=== PATIENT | female | born 1970 | race Caucasian/White ===

== ENCOUNTER → 2017-02-27 | Outpatient (REF) | payer OTHER | LOC: M LAB REF 16:28 | PROVIDERS: ATTEND Nurse Practitioner Family | DX: R10.9 Unspecified abdominal pain (principal); M54.5 Low back pain ==

== ENCOUNTER → 2017-02-28 | Outpatient (REF) | payer OTHER ==
[2017-02-28 14:36] LABS: GAMMA GLUTAMYLTRANSPEPTIDASE 577 U/L (5-55)
== END ==
LOC: M LAB REF 13:12
PROVIDERS: ATTEND Nurse Practitioner Family
DX: R94.5 Abnormal results of liver function studies (principal); R10.9 Unspecified abdominal pain; M54.5 Low back pain

== ENCOUNTER → 2017-10-22 | Outpatient (REF) | payer OTHER ==
[2017-10-22 12:40] LABS: GAMMA GLUTAMYLTRANSPEPTIDASE 144 U/L (5-55)
== END ==
LOC: M LAB REF 12:07
DX: R94.5 Abnormal results of liver function studies (principal)

== ENCOUNTER → 2018-05-21 | Outpatient (REF) | payer OTHER ==
[2018-05-21 13:46] LABS: GAMMA GLUTAMYLTRANSPEPTIDASE 118 U/L (5-55)
== END ==
LOC: M LAB REF 12:59
DX: R94.5 Abnormal results of liver function studies (principal)

== ENCOUNTER 2020-10-24 11:02 | Observation (INO) | payer OTHER ==
[~2020-10-24] VITALS: Ht 152.4 cm; Wt 77.5 kg
[2020-10-24] MEDS ORDERED: VITA50005 PO (11:21)
[2020-10-24] MEDS ORDERED: METF500T13 PO (11:21)
[2020-10-24] MEDS ORDERED: ATOR1TAB19 PO (11:21)
[2020-10-24] MEDS ORDERED: PARO20TA3 PO (11:21)
[2020-10-24] MEDS ORDERED: SULF500T41 PO (11:21)
[2020-10-24] MEDS ORDERED: TOUJ1.2I (11:21)
[2020-10-24] MEDS ORDERED: GLIM2TAB29 PO (11:21)
[2020-10-24] MEDS ORDERED: CLAR10CA3 PO (11:21)
[2020-10-24] MEDS ORDERED: NS 1,000 ML IV ONE (11:40)
--- NOTE | 2020-10-24 12:00 | REP ---
INDICATION: Abdominal Pain COMPARISON: None. TECHNIQUE: Upright view of the chest with supine and upright views of the abdomen and pelvis. FINDINGS: Frontal upright view of the chest demonstrates no acute cardiopulmonary process or free air below the diaphragm to suspect pneumoperitoneum. Supine and upright views of the abdomen and pelvis demonstrate nonspecific bowel gas pattern without obstruction or perforation. No organomegaly. No abnormal calcifications. Skeletal structures normal for age. IMPRESSION: Nonspecific bowel gas pattern. <Electronically signed by Porter Osei > 10/24/20 [id number]
[2020-10-24 12:33] LABS: BASO # 0.1 10^3/uL (0.0-0.2); BASO % 0.2 % (0.0-1.0); EOS # 0.2 10^3/uL (0.0-0.5); EOS % 0.9 % (0.0-3.0); HEMOGLOBIN 13.9 g/dl (12.0-15.5); LYMPH # 2.2 10^3/uL (1.5-5.0); LYMPH % 10.4 % (24.0-44.0); MEAN CORPUSCULAR HEMOGLOBIN 30.6 pg (27.0-33.0); MEAN CORPUSCULAR HGB CONC 32.3 g/dl (32.0-36.5); MEAN CORPUSCULAR VOLUME 94.7 fl (80.0-96.0); MONO # 1.4 10^3/uL (0.0-0.8); MONO % 6.9 % (2.0-8.0); NEUTROPHILS # 16.8 10^3/uL (1.5-8.5); PLATELET COUNT, AUTOMATED 265 10^3/uL (150-450); RED BLOOD COUNT 4.54 10^6/uL (4.00-5.40); WHITE BLOOD COUNT 20.8 10^3/uL (4.0-10.0)
--- NOTE | 2020-10-24 12:33 | REP ---
INDICATION: RUQ TTP, h/o gallstones. COMPARISON: Ultrasound 03/01/[address] 03/06/2017. TECHNIQUE: Real-time sonographic evaluation of right upper quadrant performed. FINDINGS: Multiple gallstones in the gallbladder, the largest measures 1.1 cm. There is mild gallbladder wall thickening to 5 mm. Trace fluid is seen adjacent to the gallbladder.. There is no intrahepatic or extrahepatic biliary dilatation, common bile duct measures 4 mm in maximum diameter. The liver demonstrates 2 solid-appearing masses, 1 in the left lobe measuring 3 cm in diameter and 1 in the right lobe measuring 4.4 cm in diameter. These have been visualized on prior studies and are grossly unchanged. In fact there were 4 mass is seen on the CT performed 03/06/2017. The visualized pancreas is grossly unremarkable, not optimally visualized due to overlying bowel gas. The right kidney demonstrates no hydronephrosis, with a normal size of 11.7 cm in length. IMPRESSION: Multiple gallstones in the gallbladder measuring up to 1.1 cm in diameter. Mild gallbladder wall thickening up to 5 mm. Trace fluid adjacent to the gallbladder. No biliary dilatation. Two solid masses are seen in the liver as discussed above which appear unchanged compared to prior CT 03/06/2017. <Electronically signed by Darius Bundy > 10/24/20 [id number]
[2020-10-24] MEDS ORDERED: PIPERACILLIN/TAZOBACTAM SOD 3.375 GM in D5W MINI-BAG PLUS 50 ML IV ONE (12:45)
[2020-10-24 13:07] LABS: ALBUMIN 3.7 GM/DL (3.2-5.2); BILIRUBIN,DIRECT 0.3 MG/DL (0.0-0.2); BILIRUBIN,TOTAL 0.8 MG/DL (0.2-1.0); TOTAL PROTEIN 7.5 GM/DL (6.4-8.2)
[2020-10-24] MEDS ORDERED: LOSA50TA88 PO (13:09)
[2020-10-24] MEDS ORDERED: ISOVUE-370 76% 100ML VIAL As Ordered ONE (13:11)
[2020-10-24 13:19] LABS: CK-MB VALUE MASS < 1.0 NG/ML (<3.6); CPK CREATINE PHOSPHOKINASE 137 U/L (26-192); MB/CK RELATIVE INDEX 0.73 (< OR =4); TROPONIN I < 0.02 NG/ML (< 0.10)
--- NOTE | 2020-10-24 13:35 | REP ---
INDICATION: RUQ and RLQ TTP. COMPARISON: None TECHNIQUE: Axial contrast-enhanced images from the lung bases to the pubic symphysis using 100 cc Isovue 370 intravenous contrast material. Coronal and sagittal reformations obtained. This CT examination was performed using the following dose reduction techniques: Automated exposure control, adjustment of mA and/or kv according to the patient's size, and the use of iterative reconstruction technique. FINDINGS: Distended gallbladder demonstrates gallstones, wall thickening, and pericholecystic fluid consistent with acute cholecystitis. Liver demonstrates hyperenhancing areas consistent with findings on prior examination and likely chronic/benign. Spleen, pancreas, bilateral adrenal glands and kidneys are normal. The enteric system is without obstruction or acute inflammatory process. Normal terminal ileum and appendix are identified in the right lower quadrant. Scattered diverticula noted without acute diverticulitis. Pelvis demonstrates collapsed bladder and age-appropriate uterus/adnexa. No ascites. No free air. No retroperitoneal adenopathy. Abdominal aorta without aneurysm or dissection. Musculoskeletal structures are intact. Lung bases demonstrate trace right basilar atelectasis. IMPRESSION: Findings compatible with acute cholecystitis. <Electronically signed by Porter Osei > 10/24/20 [id number]
[2020-10-24] MEDS ORDERED: NORCO, ANEXSIA 5/325MG TABLET (HYDROcodone/ACETAMINOPHEN) PO PRN ×2 (13:55)
[2020-10-24] MEDS: PIPERACILLIN/TAZOBACTAM SOD 3.375 GM in D5W MINI-BAG PLUS 50 ML IV SCH ×2 (14:00→20:58)
[2020-10-24 14:57] LABS: RSV AMPLIFICATION NEGATIVE (NEGATIVE)
--- NOTE | 2020-10-24 16:04 | ECGEPIP ---
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
[2020-10-24 16:20] VITALS: BP 107/62
[2020-10-24] MEDS: PANTOPRAZOLE 40MG VIAL (C9113 PER 1) IV SCH (16:43)
[2020-10-24] MEDS: KETOROLAC 30 MG/ML 1ML VIAL IV SCH ×2 (16:44→21:00)
[2020-10-24] MEDS: NS 1,000 ML IV SCH (16:45)
[2020-10-24] MEDS ORDERED: GLUCAGON INJ 1MG VIAL SC PRN (16:55)
[2020-10-24] MEDS ORDERED: DEXTROSE 50% 50 ML SYRINGE IV PRN (16:55)
[2020-10-24] MEDS ORDERED: GLUCOSE 4GM CHEW TABLET PO PRN (16:55)
[2020-10-24] MEDS: HumaLOG INSULIN (NovoLOG) PER UNIT SC SCH (18:00)
[2020-10-24 20:59] VITALS: BP 127/61
[2020-10-24] MEDS ORDERED: LOSARTAN 50MG TABLET PO SCH (21:00)
[2020-10-24] MEDS ORDERED: LORATADINE 10 MG TAB PO SCH (21:00)
[2020-10-24] MEDS ORDERED: ATORVASTATIN 10 MG TAB PO SCH (21:00)
--- NOTE | 2020-10-24 21:01 | HPE ---
HISTORY AND PHYSICAL DATE OF ADMISSION: 10/24/2020 Patient is a 49-year-old female who has had pain for over 2 1/2 days now, initially started with some periumbilical pain radiating up into the epigastric area and more so into the right upper quadrant, was seen in the emergency room after having this persistent pain that was not getting better. She did not have any fevers or chills. She has not had any acholic stools, no bilirubinuria, no blood per rectum, no previous episodes similar to this. Her evaluation in the emergency room revealed evidence of cholecystitis with an elevated white count. PAST MEDICAL HISTORY: The patient has a previous section, history of left leg incision and drainage, history of hypercholesterolemia, hypertension, coronary artery disease, history of diabetes mellitus, history of depression. MEDICATIONS: Include: - atorvastatin - insulin - vitamin D - paroxetine - glimepiride - metformin - loratadine - sulfasalazine - losartan PHYSICAL EXAMINATION: Reveals a 49-year-old female, looks stated age. HEENT: Unremarkable. Neck: Supple without adenopathy. Lungs: Clear to auscultation without crackles, wheeze, or rhonchi. Heart: Regular without murmur. Abdomen: Soft, nontender, nondistended except in the right upper quadrant where she has some guarding with some mild rebound. Extremities: Warm and well-perfused. No hernias or masses are appreciated. No evident lesions are appreciated. Her white count is elevated. No significant elevation of liver function tests. No evidence of gallstone pancreatitis. Has had a gallbladder ultrasound showing gallstones. IMPRESSION/PLAN: The patient has evidence of cholecystitis and right upper quadrant pain, tenderness, elevated white count. At this time, we will plan on proceeding with IV fluids, IV antibiotics, keep her nothing by mouth, and get some followup labs in the morning, will get her on insulin sliding scale, restart her medications in the morning. Depending on her progress, she may need operative intervention while she is here, otherwise if she has significant improvement of her abdominal pain and discomfort we may mobilize her as an outpatient and plan for a laparoscopic cholecystectomy as an outpatient. She understands our current plan at this time. She states that she is feeling better now than she was when she was first seen in the emergency room and feels better than she did when she initially started having the pain and discomfort, thus will continue with current plans at this time.
[2020-10-24 22:00] VITALS: BP 127/61
[2020-10-25 02:00] VITALS: BP 126/60
[2020-10-25] MEDS: PIPERACILLIN/TAZOBACTAM SOD 3.375 GM in D5W MINI-BAG PLUS 50 ML IV SCH ×3 (02:39→12:55)
[2020-10-25] MEDS: NS 1,000 ML IV SCH ×3 (02:39→12:56)
[2020-10-25] MEDS: KETOROLAC 30 MG/ML 1ML VIAL IV SCH ×2 (02:39→08:24)
[2020-10-25 05:53] LABS: HEMOGLOBIN 12.4 g/dl (12.0-15.5); MEAN CORPUSCULAR HGB CONC 32.6 g/dl (32.0-36.5); PLATELET COUNT, AUTOMATED 207 10^3/uL (150-450); WHITE BLOOD COUNT 13.1 10^3/uL (4.0-10.0)
[2020-10-25 06:00] VITALS: BP 130/63
[2020-10-25] MEDS: HumaLOG INSULIN (NovoLOG) PER UNIT SC SCH ×3 (06:00→12:56)
[2020-10-25 06:26] LABS: ALBUMIN 2.7 GM/DL (3.2-5.2); ALT/SGPT 23 U/L (12-78); BLOOD UREA NITROGEN 15 MG/DL (7-18); CALCIUM LEVEL 8.3 MG/DL (8.5-10.1); CARBON DIOXIDE LEVEL 26 MEQ/L (21-32); CHLORIDE LEVEL 109 MEQ/L (98-107); CREATININE FOR GFR 0.69 MG/DL (0.55-1.30); GLOMERULAR FILTRATION RATE > 60.0 (>51); GLUCOSE, FASTING 106 MG/DL (70-100); LIPASE 119 U/L (73-393); POTASSIUM SERUM 3.5 MEQ/L (3.5-5.1); SODIUM LEVEL 141 MEQ/L (136-145); TOTAL PROTEIN 6.1 GM/DL (6.4-8.2)
[2020-10-25] MEDS: PANTOPRAZOLE 40MG VIAL (C9113 PER 1) IV SCH (08:22)
[2020-10-25] MEDS ORDERED: PARoxetine 20MG TABLET PO SCH (09:00)
[2020-10-25 10:00] VITALS: BP 132/67
--- NOTE | 2020-10-25 11:25 | IPNPDOC ---
Text Note Date of Service The patient was seen on 10/25/20. NOTE Gen. surgery. Dr. Cole The patient is a 49-year-old female admitted 10/24/20 with cholecystitis. The patient was admitted with IV fluids, IV antibiotics and NPO. This morning, the patient states her abdominal discomfort is much improved. She states there is still some mild tenderness/soreness but it is much improved compared with yesterday. No nausea or vomiting. Denies abdominal distention, diarrhea. The patient last used a dose of Toradol at 2:30 AM. She has not used any [place] during admission. Afebrile, 98.5 this morning. 100.2 last evening at 1800 General. Awake and alert, resting comfortably in bed, no acute distress. Lungs clear to auscultation Heart S1, S2 regular rate and rhythm. Abdomen. Soft, nondistended, mild tenderness with palpation in the right upper quadrant, no grimacing on exam, no rebound. Extremities are warm and well-perfused, no edema. 1965/400, +1565 WBC 13.1, this is decreased from 20.8 on admission. AST 16, ALT 23, alkaline phosphatase 93, lipase 119 Blood culture 2 pending. Assessment/plan Acute cholecystitis. The patient reports her discomfort is significantly improved compared with admission yesterday. The patient reports no nausea or vomiting. Will try clear liquids and see if the patient is able to tolerate this. IVF NS 125 IV Zosyn. IV Protonix. Monitor. DM Blood sugar 91-135. Hypertension. Continue Cozaar. BP 130/63 this morning Dyslipidemia. Continue statin. VS,Fishbone, I+O VS, Fishbone, I+O Laboratory Tests 10/24/20 11:45 10/25/20 05:33 Vital Signs Date Time Temp Pulse Resp B/P (MAP) Pulse Ox O2 Delivery O2 Flow Rate FiO2 10/25/20 10:00 97.4 67 18 132/67 (88) 98 Room Air I&O- Last 24 Hours up to 6 AM 10/25/20 06:00 Intake Total 2640 ml Output Total 400 ml Balance 2240 ml Mattie Barclay Oct 25, 2020 11:25
[2020-10-25] MEDS ORDERED: AMOX500T2 PO (13:22)
[2020-10-25 14:00] VITALS: BP 137/74
== END 2020-10-25 14:34 | disposition home or self-care (01) ==
LOC: M ED 11:02 → M ED INP 13:51 → ENRESERV 14:30 → M MSPAV 16:23
PROVIDERS: ADMIT Surgery; ATTEND Surgery
DX: K81.0 Acute cholecystitis (principal); E11.9 Type 2 diabetes mellitus without complications; I10 Essential (primary) hypertension; E78.49 Other hyperlipidemia; F32.9 Major depressive disorder, single episode, unspecified; Z79.4 Long term (current) use of insulin; Z79.84 Long term (current) use of oral hypoglycemic drugs; Z79.899 Other long term (current) drug therapy
CPT/HCPCS: 36415; 74021; 74177; 76705; 80047; 80053; 80076; 81001; 82550; 82553; 83605; 83690; 84484; 85025; 85027; 87040; 87631; 93005; 93041; 96361; 96365; 96366; 96375; 96376; 99285; C9113; J1885; J2543; Q9967

== ENCOUNTER → 2020-12-01 | Outpatient (CLI) | payer OTHER ==
[~2020-12-01] MED LIST: AMOX500T2 PO; ATOR1TAB19 PO; CLAR10CA3 PO; GLIM2TAB29 PO; LOSA50TA88 PO; METF500T13 PO; PARO20TA3 PO; SULF500T41 PO; TOUJ1.2I; VITA50005 PO
== END ==
LOC: M LABSMTC 10:25
PROVIDERS: ATTEND Anesthesiology
DX: Z11.52 Encounter for screening for COVID-19 (principal)

== ENCOUNTER 2020-12-06 07:27 | Day surgery (SDC) | payer OTHER ==
[~2020-12-06] VITALS: Ht 152.4 cm; Wt 73.8 kg
[~2020-12-06 07:27] MED LIST changes: +LR 1,000 ML IV ONE; +ceFAZolin SOD 2 GM in IV 1 EA IV ONE
[2020-12-06] MEDS ORDERED: BUPIVACAINE/EPIN 0.25% 30 ML VIAL As Ordered ONE (08:48)
[2020-12-06] MEDS ORDERED: dexameTHASONE 4 MG/ML 1ML VIAL (J1100 PER 1MG) As Ordered ONE (09:26)
[2020-12-06] MEDS ORDERED: MIDAZOLAM INJ 2MG/2ML VIAL (J2250 PER 1MG) As Ordered ONE (09:26)
[2020-12-06] MEDS ORDERED: SUGAMMADEX SODIUM 500 MG/5 ML VIAL (BRIDION) As Ordered ONE (09:26)
[2020-12-06] MEDS ORDERED: ONDANSETRON 4MG/2ML VIAL As Ordered ONE (09:26)
[2020-12-06] MEDS ORDERED: ROCURONIUM BROMIDE 50 MG/5 ML VIAL As Ordered ONE (09:26)
[2020-12-06] MEDS ORDERED: propofoL 200 MG/20 ML VIAL As Ordered ONE (09:26)
[2020-12-06] MEDS ORDERED: LIDOCAINE 2% 100MG/5ML SDV (FOR ANES.) As Ordered ONE (09:26)
[2020-12-06] MEDS ORDERED: fentaNYL 100 MCG/2 ML INJECTION (J3010) As Ordered ONE (09:26)
[2020-12-06] MEDS ORDERED: KETOROLAC 60MG 2ML VIAL As Ordered ONE (09:26)
[2020-12-06] MEDS ORDERED: HYDROmorphone HCL 2 MG/ML 1ML VIAL (J1170) As Ordered ONE (09:27)
[2020-12-06] MEDS ORDERED: PHENYLephrine 500MCG 5ML (100MCG/ML) SYRINGE As Ordered ONE (09:34)
[2020-12-06] MEDS ORDERED: MEPERIDINE INJ 25 MG/ML VIAL (J2175) As Ordered ONE (10:18)
[2020-12-06] MEDS ORDERED: oxyCODONE 5MG TAB PO PRN (10:20)
[2020-12-06] MEDS ORDERED: LR 1,000 ML IV SCH (10:20)
[2020-12-06] MEDS ORDERED: NS 1,000 ML IV SCH (10:20)
[2020-12-06] MEDS ORDERED: ONDANSETRON 4MG/2ML VIAL IV PRN (10:20)
[2020-12-06] MEDS ORDERED: traMADol 50 MG TAB PO PRN (10:20)
[2020-12-06] MEDS ORDERED: MEPERIDINE INJ 25 MG/ML VIAL (J2175) IV PRN (10:20)
[2020-12-06] MEDS ORDERED: fentaNYL 100 MCG/2 ML INJECTION (J3010) IV PRN (10:20)
--- NOTE | 2020-12-06 10:45 | RO ---
OPERATIVE NOTE DATE OF OPERATION: 12/06/2020 PREOPERATIVE DIAGNOSIS: Acute cholecystitis. POSTOPERATIVE DIAGNOSIS: Acute cholecystitis. PROCEDURE: Laparoscopic cholecystectomy. SURGEON: Sourav Cole Jr, MD PROPAGATOR LABORER: ANESTHESIA: General endotracheal anesthesia EBL: Minimal. FLUIDS: Crystalloid. DISPOSITION: The patient was taken to recovery room awake, alert, hemodynamically stable. DESCRIPTION OF PROCEDURE: The patient was taken to the operating room and was given general anesthesia. After adequate anesthesia and preoperative antibiotics were given, the patient was prepped and draped in the usual sterile fashion. Next, a supraumbilical incision was made with a skin knife. Blunt dissection was carried down to fascia. The fascia was entered with Veress needle and insufflated to 15 mm of pressure. Dilating 10 mm trocar was placed and under direct visualization an epigastric and two lateral trocars were placed. Some adhesions of the gallbladder to the omentum were taken down with Hook cautery and the gallbladder was retracted superiorly and neck of the gallbladder was cleared of peritoneum using Hook cautery. Circumferentially I was able to see the neck of the gallbladder quite nicely, cystic artery was going into the gallbladder itself and critical view of safety was obtained. The cystic artery was clipped proximally and distally and transected. The cystic duct was dissected further and had tapered nicely and this was clipped proximally and distally and transected. The gallbladder was removed from the gallbladder bed, placed in an Endo Catch bag, brought out through the umbilicus. The right upper quadrant was copiously irrigated until clear. All trocars were removed under direct visualization. #0 Vicryl was used to close the fascia at the umbilicus. All incisions were closed with 4-0 Vicryl. Steri-Strips and a dry sterile dressing were applied. The patient was awakened, extubated and brought to the recovery room awake, alert and hemodynamically stable. Sponge and needle counts were correct x2.
[2020-12-06 12:02] VITALS: BP 132/65
== END 2020-12-06 12:05 | disposition home or self-care (01) ==
LOC: M SDC 07:27
PROVIDERS: ATTEND Surgery
DX: K80.12 Calculus of gallbladder with acute and chronic cholecystitis without obstruction (principal); I11.9 Hypertensive heart disease without heart failure; E11.65 Type 2 diabetes mellitus with hyperglycemia; F32.9 Major depressive disorder, single episode, unspecified; I25.10 Atherosclerotic heart disease of native coronary artery without angina pectoris; M79.9 Soft tissue disorder, unspecified; F41.9 Anxiety disorder, unspecified; F34.1 Dysthymic disorder; Z88.1 Allergy status to other antibiotic agents; J30.1 Allergic rhinitis due to pollen; M89.9 Disorder of bone, unspecified; Z79.899 Other long term (current) drug therapy; Z79.4 Long term (current) use of insulin; Z79.2 Long term (current) use of antibiotics
CPT/HCPCS: 47562; 88304; J0690; J1100; J1170; J1885; J2175; J2250; J2370; J2405; J3010; S2900

== ENCOUNTER → 2021-03-13 | Outpatient (REF) | payer OTHER ==
[~2021-03-13] MED LIST changes: +ERGO500029 PO; -LR 1,000 ML IV ONE; -VITA50005 PO; -ceFAZolin SOD 2 GM in IV 1 EA IV ONE
== END ==
LOC: M SFHCCAPE 13:43
PROVIDERS: ATTEND Physician Assistant
DX: R35.0 Frequency of micturition (principal)

== ENCOUNTER → 2022-06-12 | Outpatient (CLI) | payer OTHER ==
[~2022-06-12] MED LIST changes: +LOSA50TA28 PO; -LOSA50TA88 PO
[2022-06-12 11:17] LABS: HEMOGLOBIN A1c 7.1 %
== END ==
LOC: M PLALAB 07:55
PROVIDERS: ATTEND Internal Medicine Endocrinology, Diabetes & Metabolism
DX: E11.65 Type 2 diabetes mellitus with hyperglycemia (principal); I10 Essential (primary) hypertension

== ENCOUNTER → 2022-12-11 | Outpatient (CLI) | payer OTHER ==
[2022-12-11 11:56] LABS: HEMOGLOBIN A1c 7.1 % (4.0-6.0)
== END ==
LOC: M PLALAB 07:51
PROVIDERS: ATTEND Internal Medicine Endocrinology, Diabetes & Metabolism
DX: E11.65 Type 2 diabetes mellitus with hyperglycemia (principal)

== ENCOUNTER → 2023-05-09 | Outpatient (CLI) | payer OTHER ==
[2023-05-09 11:25] LABS: ALBUMIN 4.1 G/DL (3.2-5.2); ALKALINE PHOSPHATASE 109 U/L (46-116); ALT/SGPT 27 U/L (7.0-40); AST/SGOT 17 U/L (<34); BILIRUBIN,TOTAL 0.5 MG/DL (0.3-1.2); BLOOD UREA NITROGEN 18 MG/DL (9-23); CALCIUM LEVEL 9.6 MG/DL (8.5-10.1); CARBON DIOXIDE LEVEL 30 MMOL/L (20-31); CHLORIDE LEVEL 105 MMOL/L (98-107); CHOLESTEROL LEVEL 113 MG/DL (<200); CHOLESTEROL RISK RATIO 3.27 (<5); CREATININE FOR GFR 0.66 MG/DL (0.55-1.30); GLOMERULAR FILTRATION RATE > 60.0 (>51); GLUCOSE, FASTING 145 MG/DL (60-100); HDL CHOLESTEROL 34.5 MG/DL (>40); LDL CHOLESTEROL 62.5 MG/DL (<100); NON-HDL-C 78.5 MG/DL; POTASSIUM SERUM 4.4 MMOL/L (3.5-5.1); SODIUM LEVEL 141 MMOL/L (136-145); TOTAL PROTEIN 7.4 G/DL (5.7-8.2); TRIGLYCERIDES LEVEL 80 MG/DL (<150)
[2023-05-09 12:03] LABS: HEMOGLOBIN A1c 6.7 % (4.0-6.0)
== END ==
LOC: M PLALAB 07:59
PROVIDERS: ATTEND Internal Medicine Endocrinology, Diabetes & Metabolism
DX: E78.00 Pure hypercholesterolemia, unspecified (principal); E11.9 Type 2 diabetes mellitus without complications; I10 Essential (primary) hypertension

== ENCOUNTER → 2023-10-31 | Outpatient (REF) | payer OTHER | LOC: M LAB REF 12:22 | PROVIDERS: ATTEND Family Medicine | DX: M89.9 Disorder of bone, unspecified (principal); Z79.84 Long term (current) use of oral hypoglycemic drugs ==

== ENCOUNTER → 2023-12-19 | Outpatient (CLI) | payer OTHER ==
[2023-12-19 13:11] LABS: CREATININE, URINE 66.9 MG/DL
[2023-12-19 13:12] LABS: MAU/CREAT RATIO 8.9 MCG/MG (0.0-30.0)
[2023-12-19 13:15] LABS: HEMOGLOBIN A1c 7.5 % (4.0-6.0)
== END ==
LOC: M PLALAB 09:15
PROVIDERS: ATTEND Internal Medicine Endocrinology, Diabetes & Metabolism
DX: E11.65 Type 2 diabetes mellitus with hyperglycemia (principal)

== ENCOUNTER → 2024-06-24 | Outpatient (CLI) | payer OTHER ==
[2024-06-24 14:33] LABS: HEMOGLOBIN A1c 6.7 % (4.0-6.0)
== END ==
LOC: M PLALAB 11:33
PROVIDERS: ATTEND Internal Medicine Endocrinology, Diabetes & Metabolism
DX: E11.65 Type 2 diabetes mellitus with hyperglycemia (principal); E78.00 Pure hypercholesterolemia, unspecified; I10 Essential (primary) hypertension

== ENCOUNTER → 2024-10-09 | Outpatient (CLI) | payer OTHER ==
[2024-10-09 14:02] LABS: C REACTIVE PROTEIN QUANTITATIV < 0.50 MG/DL (<1.0)
[2024-10-09 14:03] LABS: ALT/SGPT 32 U/L (7.0-40); AST/SGOT 21 U/L (<34); CREATININE FOR GFR 0.59 MG/DL (0.55-1.30); GLOMERULAR FILTRATION RATE > 60.0 (>51)
[2024-10-09 14:08] LABS: BASO # 0.1 10^3/uL (0.0-0.2); BASO % 0.8 % (0.0-1.0); EOS # 0.2 10^3/uL (0.0-0.5); HEMATOCRIT 44.1 % (36.0-47.0); HEMOGLOBIN 14.1 g/dl (12.0-15.5); LYMPH # 2.8 10^3/uL (1.5-5.0); LYMPH % 31.8 % (24.0-44.0); MEAN CORPUSCULAR HEMOGLOBIN 30.2 pg (27.0-33.0); MEAN CORPUSCULAR VOLUME 94.4 fl (80.0-96.0); MONO # 0.6 10^3/uL (0.0-0.8); MONO % 6.9 % (2.0-8.0); NEUTROPHILS # 5.2 10^3/uL (1.5-8.5); NEUTROPHILS % 58.1 % (36.0-66.0); PLATELET COUNT, AUTOMATED 269 10^3/uL (150-450); RED BLOOD COUNT 4.67 10^6/uL (4.00-5.40); WHITE BLOOD COUNT 8.9 10^3/uL (4.0-10.0)
[2024-10-09 14:23] LABS: ERYTHROCYTE SEDIMENTATION RATE 15 mm/hr (0-30)
== END ==
LOC: M PLALAB 11:08
PROVIDERS: ATTEND Physician Assistant
DX: Z51.81 Encounter for therapeutic drug level monitoring (principal); Z79.899 Other long term (current) drug therapy

== ENCOUNTER → 2024-12-23 | Outpatient (CLI) | payer OTHER ==
[2024-12-23 11:17] LABS: ALBUMIN 3.9 G/DL (3.2-5.2); ALKALINE PHOSPHATASE 98 U/L (35-104); ALT/SGPT 38 U/L (7.0-40); AST/SGOT 18 U/L (<34); BILIRUBIN,TOTAL 0.5 MG/DL (0.3-1.2); BLOOD UREA NITROGEN 14 MG/DL (9-23); CALCIUM LEVEL 9.2 MG/DL (8.5-10.1); CARBON DIOXIDE LEVEL 30 MMOL/L (20-31); CHLORIDE LEVEL 104 MMOL/L (98-107); CHOLESTEROL LEVEL 145 MG/DL (<200); CHOLESTEROL RISK RATIO 3.39 (<5); CREATININE FOR GFR 0.64 MG/DL (0.55-1.30); GLOMERULAR FILTRATION RATE > 90.0 (>51); GLUCOSE, FASTING 129 MG/DL (60-100); HDL CHOLESTEROL 42.7 MG/DL (>40); LDL CHOLESTEROL 78.5 MG/DL (<100); NON-HDL-C 102.3 MG/DL; POTASSIUM SERUM 3.8 MMOL/L (3.5-5.1); SODIUM LEVEL 142 MMOL/L (136-145); TOTAL PROTEIN 7.2 G/DL (5.7-8.2); TRIGLYCERIDES LEVEL 119 MG/DL (<150)
[2024-12-23 11:27] LABS: CREATININE, URINE 205.9 MG/DL; CREATININE,RANDOM URINE 205.9 MG/DL; MAU/CREAT RATIO 7.7 MCG/MG (0.0-30.0)
[2024-12-23 11:42] LABS: HEMOGLOBIN A1c 7.1 % (4.0-6.0)
== END ==
LOC: M PLALAB 07:56
PROVIDERS: ATTEND Internal Medicine Endocrinology, Diabetes & Metabolism
DX: E11.65 Type 2 diabetes mellitus with hyperglycemia (principal); E78.00 Pure hypercholesterolemia, unspecified; I10 Essential (primary) hypertension

== ENCOUNTER → 2025-04-27 | Outpatient (CLI) | payer OTHER ==
[2025-04-27 19:37] LABS: ESTIMATED AVERAGE GLUCOSE 166.0 MG/DL (60-110)
== END ==
LOC: M PLALAB 16:17
PROVIDERS: ATTEND Internal Medicine Endocrinology, Diabetes & Metabolism
DX: I10 Essential (primary) hypertension (principal); E11.65 Type 2 diabetes mellitus with hyperglycemia; E78.00 Pure hypercholesterolemia, unspecified